=== PATIENT | male | born 1980 | race Caucasian/White ===

== ENCOUNTER 2021-01-04 14:19 | Inpatient (IN) | payer MEDICAID ==
[~2021-01-04] VITALS: Ht 182.9 cm; Wt 160.6 kg
--- NOTE | 2021-01-04 14:19 | NUR ---
PT BIBRA FROM BUS STOP C/O HEADACHE AND BODY ACHE X TODAY. PT IS AAOX4, NOT IN RESPIRATORY DISTRESS, HOOKED HAT CLEANER, KEPT RESTED AND COMFORTABLE. WILL CONTINUE TO MONITOR.
--- NOTE | 2021-01-04 14:36 | NUR ---
PT SEEN AND EXAMINED BY .
--- NOTE | 2021-01-04 14:59 | NUR ---
ER PHLEB AT BEDSIDE FOR BLOOD DRAW.
--- NOTE | 2021-01-04 15:20 | NUR ---
COVID SPECIMEN OBTAINED AND SENT TO LAB.
[2021-01-04 15:52] LABS: CREATININE 0.6 mg/dL (0.6-1.3); POTASSIUM 3.9 mmol/L (3.5-5.1)
[2021-01-04 15:58] LABS: ALBUMIN 3.2 g/dL (3.4-5.0); BILIRUBIN,TOTAL 0.6 mg/dL (0.2-1.0); TOTAL PROTEIN, SERUM 9.1 g/dL (6.4-8.2)
--- NOTE | 2021-01-04 16:00 | NUR ---
PT IS BACK FROM THE CT SCAN.
[2021-01-04 16:07] LABS: BASOPHILS # (AUTO) 0.1 /CMM (0.0-0.2); BASOPHILS % (AUTO) 0.6 % (0.0-2.0); EOSINOPHILS % (AUTO) 1.4 % (0.0-6.0); HEMATOCRIT 44 % (39-51); HEMOGLOBIN 14.5 g/dL (13.5-17.5); LYMPHOCYTES % (AUTO) 10.2 % (20.0-44.0); MEAN CORPUSCULAR HGB CONC 33 g/dl (31.0-36.0); MEAN CORPUSCULAR VOLUME 79 fL (80-96); MONOCYTES # (AUTO) 1.4 /CMM (0.1-1.30); MONOCYTES % (AUTO) 6.9 % (2.0-12.0); NEUTROPHILS % (AUTO) 80.9 % (43.0-81.0); RED BLOOD CELL COUNT(AUTO) 5.58 MIL/uL (4.5-6.0); WHITE BLOOD COUNT (AUTO) 19.8 K/uL (4.3-11.0)
[2021-01-04 16:55] LABS: PLATELET COUNT (AUTO) 242 /CMM (150-450)
[2021-01-04 17:05] LABS: B-TYPE NATRIURETIC PEPTIDE 28 PG/ML (0-125)
--- NOTE | 2021-01-04 17:07 | NUR ---
MOVE SHEET SUBMITTED AND CALLED FOR TELE BED.
--- NOTE | 2021-01-04 17:29 | NUR ---
[facility] FOR IV ANTIBIOTIC.
[2021-01-04] MEDS ORDERED: PIPERACILLIN /TAZOBACTAM 3.375 G in IV D5W 50 ML IV ONE (17:30)
[2021-01-04 17:32] LABS: BILIRUBIN,URINE SMALL (NEGATIVE); COLOR,URINE YELLOW (YELLOW); LEUKOCYTE ESTERASE ,URINE SMALL (NEGATIVE); NITRITE, URINE NEGATIVE (NEGATIVE); PH,URINE 5.5 (5.0-8.0); PROTEIN,URINE 30 mg/dl (NEGATIVE); UGLUCOSE NEGATIVE (NEGATIVE)
[2021-01-04] MEDS ORDERED: AZITHROMYCIN 250 MG TABLET PO ONE (18:00)
[2021-01-04] MEDS ORDERED: CEFTRIAXONE 1 G in IV D5W 50 ML IV ONE (18:00)
--- NOTE | 2021-01-04 18:10 | NUR ---
[facility] CALLED BUSINESS BANKING MANAGER PAGED.
[2021-01-04] MEDS ORDERED: AZITHROMYCIN 250 MG TABLET ONE (18:17)
[2021-01-04] MEDS ORDERED: CEFTRIAXONE 1GM BAG (ER ONLY) 50 ML IV ONE (18:17)
[2021-01-04] MEDS ORDERED: HYDROCODONE/APAP 5/325MG TABLET ONE (18:22)
--- NOTE | 2021-01-04 18:26 | NUR ---
GOT BED 109 BUT AVAILABLE AFTER THE SHIFT CHANGE.
[2021-01-04] MEDS ORDERED: HYDROCODONE/APAP 5/325MG TABLET PO ONE (18:30)
[2021-01-04 18:36] LABS: BACTERIA,URINE RARE /HPF (None Seen); SQUAMOUS EPITHELIAL CELL,UR 0-2 /HPF (None Seen); YEAST,URINE Few /HPF (None Seen)
--- NOTE | 2021-01-04 19:15 | NUR ---
ER TALKING TO DR. CHAIDEZ REGARDING PT ADMISSION.
--- NOTE | 2021-01-04 20:19 | NUR ---
REPORT GIVEN TO BAN ARCOS FOR JOHN PAUL.
[2021-01-04] MEDS ORDERED: ONDANSETRON HCL/PF 4 MG/2 ML VIAL IVP PRN (20:30)
[2021-01-04] MEDS ORDERED: Z GUARD REMEDY 2 OZ OINT TP PRN (20:30)
[2021-01-04] MEDS ORDERED: ACETAMINOPHEN 325 MG TABLET PO PRN (20:30)
[2021-01-04] MEDS ORDERED: MAGNESIUM HYDROXIDE 30 ML UDC PO PRN (20:30)
[2021-01-04] MEDS ORDERED: ZOLPIDEM TARTRATE 5 MG TABLET PO PRN (20:30)
[2021-01-04] MEDS ORDERED: MAG HYDROX/AL HYDROX/SIMETH 30 ML UDC PO PRN (20:30)
--- NOTE | 2021-01-04 20:35 | NUR ---
PATIENT TAKEN UP TO ASSIGNED ROOM.
--- NOTE | 2021-01-04 20:45 | NUR ---
RECEIVED PT FROM ER VIA [facility] A/O X4 ON O2 VIA NC 2L SPO2 97 % NO SIGNS OF DISTRESS NOTED, SAFELY TRANSFER FROM [facility] TO BED V/S CHECKED AND RECORDED, PT ABLE TO VERBALIZED NEEDS, HOOKED TO TELE MONITOR WITH READING SINUS RHYTHM 80'S, HEAD TO TOE ASSESSMENT DONE SEVERAL REDNESS ON THE BODY NOTED, PICTURE OBTAIN, PT HAVE SUPRA PUBIC CATHETER WITH LAMBERT URINE DRAINING VIA GRAVITY NO SIGN OF INFECTION ON SUPRAPUBIC SITE, INITIAL ASSESSMENT DONE, DROPLET ISOLATION INITIATED FOR R/O COVID PCR PENDING, RAPID NEG, PT ABLE TO DRINK JUICE MAY GIVE FOOD REQUESTED, BED ON LOWEST POSITION AND LOCKED SIDE RAILS UP X2 CALL LIGHT WITHIN REACH WILL CONT TO MONITOR
[2021-01-04 21:00] VITALS: BP 113/52
[2021-01-04] MEDS: ENOXAPARIN SODIUM 40 MG/0.4 ML DISP.SYRIN SQ SCH (21:00)
[2021-01-05] VITALS (7 sets, daily range): BP systolic 103–131; BP diastolic 58–69
[2021-01-05] MEDS ORDERED: METH10TA2 PO (00:04)
[2021-01-05] MEDS ORDERED: ALBU2.5V38 NEB (00:04)
[2021-01-05] MEDS ORDERED: HALO2TAB IM (00:04)
[2021-01-05] MEDS ORDERED: SULF1TAB47 PO (00:04)
[2021-01-05] MEDS ORDERED: ONDA4TAB5 IVP (00:04)
[2021-01-05] MEDS ORDERED: LURA80TA PO (00:04)
[2021-01-05] MEDS ORDERED: OLAN5TAB3 PO (00:04)
[2021-01-05] MEDS ORDERED: CALC355O18 PO (00:04)
[2021-01-05] MEDS ORDERED: LEVO750T46 PO ×2 (00:04)
[2021-01-05] MEDS ORDERED: CLON2TAB PO (00:04)
[2021-01-05] MEDS ORDERED: OXYC5CAP18 PO (00:04)
[2021-01-05] MEDS ORDERED: HEPA100D33 IV/SQ (00:04)
[2021-01-05] MEDS ORDERED: MAGN24002 PO (00:04)
[2021-01-05] MEDS: HYDROCODONE/APAP 5/325MG TABLET PO PRN ×2 (00:22→08:15)
[2021-01-05] MEDS ORDERED: clonazePAM 2 MG TABLET PO PRN (01:00)
[2021-01-05] MEDS ORDERED: OLANZAPINE 5 MG TABLET PO PRN (01:00)
[2021-01-05] MEDS ORDERED: Medication Not On Formulary EA (Calcium Carb/Mag Hydrox/Simeth (Mylanta Tonight 800-270- PO SCH (01:00)
[2021-01-05] MEDS ORDERED: ALBUTEROL FS 2.5 MG/3 ML VIAL.NEB NEB PRN (01:00)
[2021-01-05] MEDS ORDERED: KETOROLAC TROMETHAMINE INJ 30 MG/ML VIAL IM PRN (01:30)
[2021-01-05] MEDS ORDERED: clonazePAM 1 MG TABLET ONE (03:49)
[2021-01-05 06:26] LABS: BASOPHILS # (AUTO) 0.1 /CMM (0.0-0.2); BASOPHILS % (AUTO) 1.1 % (0.0-2.0); HEMATOCRIT 39 % (39-51); HEMOGLOBIN 12.8 g/dL (13.5-17.5); LYMPHOCYTES # (AUTO) 2.4 /CMM (0.8-4.8); LYMPHOCYTES % (AUTO) 23.4 % (20.0-44.0); MEAN CORPUSCULAR HGB CONC 33 g/dl (31.0-36.0); MEAN CORPUSCULAR VOLUME 80 fL (80-96); MONOCYTES # (AUTO) 0.9 /CMM (0.1-1.30); MONOCYTES % (AUTO) 8.9 % (2.0-12.0); NEUTROPHILS # (AUTO) 6.3 /CMM (1.8-8.9); NEUTROPHILS % (AUTO) 61.6 % (43.0-81.0); PLATELET COUNT (AUTO) 200 /CMM (150-450); RED BLOOD CELL COUNT(AUTO) 4.91 MIL/uL (4.5-6.0); WHITE BLOOD COUNT (AUTO) 10.2 K/uL (4.3-11.0)
--- NOTE | 2021-01-05 06:48 | NUR ---
PT ON BED AWAKE NO SIGN OF RESPIRATORY DISTRESS, NO COMPLAINED OF PAIN, TELE MONITOR READS SINUS RHYTHM 80S NO SIGNIFICANT CHANGES ON CONDITION NOTED ALL NEED ATTENDED BED ON LOWEST POSITION AND LOCKED SIDE RAILS UP X 2 CALL LIGHT WITHIN REACH WILL ENDORSED TO AM SHIFT NURSE
[2021-01-05 07:00] LABS: CALCIUM, SERUM 8.5 mg/dL (8.5-10.1); CREATININE 0.5 mg/dL (0.6-1.3); MAGNESIUM 2.2 mg/dL (1.8-2.4); PHOSPHORUS 4.1 mg/dL (2.5-4.9); POTASSIUM 3.4 mmol/L (3.5-5.1)
[2021-01-05 07:22] LABS: THYROID STIMULATING HORMONE 1.06 uIU/mL (0.358-3.74)
--- NOTE | 2021-01-05 07:32 | NUR ---
MS/RN OPENING NOTE PATIENT IN BED ASLEEP EASILY WAKEN UP. PATIENT IS A/O X4. NO ACUTE DISTRESS NOTED AT THIS TIME. PATIENT ON ROOM AIR TOLERATING WELL. NO SOB NOTED, BREATHING EVEN, NON LABORED. SAFETY MEASURES IN PLACE, BED LOCKED AND IN LOWEST POSITION, CALL LIGHT WITHIN REACH. WILL CONTINUE TO MONITOR AND ENSURE SAFETY.
[2021-01-05] MEDS: PANTOPRAZOLE 40 MG TABLET.DR PO SCH (07:50)
[2021-01-05] MEDS: MAGNESIUM HYDROXIDE 30 ML UDC PO SCH ×2 (08:14→16:10)
[2021-01-05] MEDS ORDERED: POTASSIUM CHLORIDE 20 MEQ TAB.PRT.SR PO ONE (10:30)
[2021-01-05] MEDS: METHADONE HCL 10 MG TABLET PO SCH ×2 (11:06→20:20)
[2021-01-05] MEDS: clonazePAM 1 MG TABLET PO PRN (16:11)
[2021-01-05] MEDS ORDERED: METHYL SALICYLATE/MENTHOL 28GM 28 GM TUBE TP PRN (17:30)
[2021-01-05] MEDS: CEFTRIAXONE 1 G in IV D5W 50 ML IV SCH (17:54)
[2021-01-05] MEDS ORDERED: AZITHROMYCIN 500 MG in IV D5W 250 ML IV SCH (18:30)
--- NOTE | 2021-01-05 18:59 | NUR ---
MS/RN CLOSING NOTE PATIENT IN BED AWAKE. PATIENT IS A/O X4. NO ACUTE DISTRESS NOTED AT THIS TIME. PATIENT ON ROOM AIR TOLERATING WELL. NO SOB NOTED, BREATHING EVEN, NON LABORED. SAFETY MEASURES IN PLACE, BED LOCKED AND IN LOWEST POSITION, CALL LIGHT WITHIN REACH. ALL NEEDS MET THROUGHOUT THE SHIFT. WILL ENDORSE TO PATCH WORKER NURSE.
--- NOTE | 2021-01-05 20:00 | NUR ---
RN NOTE RECEIVED PT IN BED A/O X4, ON RA SATING 96%, PT HAS UNLABORED BREATHING, ON TELE MONITOR SHOWING SR IN 70s.SAFETY MEASURES IN PLACE.
[2021-01-05] MEDS: ENOXAPARIN SODIUM 40 MG/0.4 ML DISP.SYRIN SQ SCH (20:11)
[2021-01-05] MEDS: DOXYCYCLINE HYCLATE (100 MG) 100 MG TABLET PO SCH (20:20)
[2021-01-05] MEDS: oxyCODONE IR immediate release 5 MG PO PRN (23:11)
[2021-01-06] VITALS: BP 133/86
[2021-01-06 04:00] VITALS: BP 131/60
[2021-01-06] MEDS: clonazePAM 1 MG TABLET PO PRN ×2 (04:27→16:20)
[2021-01-06 06:48] LABS: BASOPHILS # (AUTO) 0.1 /CMM (0.0-0.2); EOSINOPHILS % (AUTO) 4.9 % (0.0-6.0); HEMATOCRIT 37 % (39-51); HEMOGLOBIN 12.2 g/dL (13.5-17.5); LYMPHOCYTES # (AUTO) 2.3 /CMM (0.8-4.8); LYMPHOCYTES % (AUTO) 23.4 % (20.0-44.0); MEAN CORPUSCULAR HGB CONC 33 g/dl (31.0-36.0); MEAN CORPUSCULAR VOLUME 80 fL (80-96); MONOCYTES # (AUTO) 0.9 /CMM (0.1-1.30); MONOCYTES % (AUTO) 9.3 % (2.0-12.0); NEUTROPHILS # (AUTO) 5.9 /CMM (1.8-8.9); NEUTROPHILS % (AUTO) 61.4 % (43.0-81.0); PLATELET COUNT (AUTO) 161 /CMM (150-450); RED BLOOD CELL COUNT(AUTO) 4.63 MIL/uL (4.5-6.0); WHITE BLOOD COUNT (AUTO) 9.6 K/uL (4.3-11.0)
[2021-01-06 07:21] LABS: CALCIUM, SERUM 8.8 mg/dL (8.5-10.1); CREATININE 0.5 mg/dL (0.6-1.3); PHOSPHORUS 3.8 mg/dL (2.5-4.9); POTASSIUM 3.9 mmol/L (3.5-5.1)
--- NOTE | 2021-01-06 07:27 | NUR ---
RN PT REMAINED STABLE NO ACUTE CHANGES DURING MY SHIFT REPORT GIVEN TO INCOMING SHIFT FOR JOHN PAUL.
--- NOTE | 2021-01-06 07:30 | NUR ---
RN OPENING NOTE PATIENT IS IN BED WITH HOB AT SEMI FOWLERS POSITION. PATIENT IS CURRENTLY AOX4. PATIENT HAS NONLABORED BREATHING ON ROOM AIR. SUPRAPUBIC BARNETT IS IN PLACE. SACRAL DTI, BILATERAL GROIN REDNESS, BILATERAL AXILLARY REDNESS HAVE BEEN NOTED. HIRA MIDLINE IS PATENT, INTACT, AND HAS NO SIGNS OF INFILTRATION. BED IS LOCKED IN THE LOWEST POSITION, CALL FINN WITHIN REACH, 3 GUARD RAILS RAISED, AND ALL HOSPITAL SAFETY PRECAUTIONS ARE IN PLACE. WILL CONTINUE TO MONITOR THROUGHOUT SHIFT.
[2021-01-06] MEDS: PANTOPRAZOLE 40 MG TABLET.DR PO SCH (07:42)
[2021-01-06 08:00] VITALS: BP 98/36
[2021-01-06] MEDS: MAGNESIUM HYDROXIDE 30 ML UDC PO SCH ×2 (08:20→16:20)
[2021-01-06] MEDS: DOXYCYCLINE HYCLATE (100 MG) 100 MG TABLET PO SCH ×2 (08:20→20:46)
[2021-01-06] MEDS: METHADONE HCL 10 MG TABLET PO SCH ×2 (08:20→20:46)
[2021-01-06] MEDS: oxyCODONE IR immediate release 5 MG PO PRN ×3 (08:26→22:22)
--- NOTE | 2021-01-06 11:05 | NUR ---
WOUND CARE CONSULT: REVIEWED CHART, NURSING DOCUMENTATION AND PHOTOS WHICH INDICATE MULTIPLE AREAS OF SCARRING WITH RASHES AND INCONTINENCE ASSOCIATED SKIN DAMAGE OVER SACRAL/BUTTOCKS SCARRING, PRESENT ON ADMISSION. RECOMMENDATIONS MADE FOR SKIN PROTECTION. DISCUSSED WITH NURSING STAFF. BARIATRIC BED ORDERED ([facility] AIR BED). MD IN AGREEMENT WITH PLAN OF CARE.
[2021-01-06 12:00] VITALS: BP 115/64
[2021-01-06 16:00] VITALS: BP 117/44
[2021-01-06] MEDS: CEFTRIAXONE 1 G in IV D5W 50 ML IV SCH (17:11)
--- NOTE | 2021-01-06 18:26 | NUR ---
RN CLOSING NOTE PATIENT IS CLEAN AND IN BED WITH HOB AT SEMI FOWLERS POSITION. PATIENT IS AOX4. CURRENTLY ON ROOM AIR WITH NO SIGNS OF LABORED BREATHING. SUPRA PUBIC BARNETT CATHETER IS IN PLACE. HIRA MIDLINE IS PATENT, INTACT, AND HAS NO SIGNS OF INFILTRATION. BILATERAL GROIN REDNESS, BILATERAL AXILLARY REDNESS, AND SACRAL DTI ARE NOTED. BED IS LOCKED IN THE LOWEST POSITION, CALL FINN WITHIN REACH, 3 GUARD RAILS RAISED, AND ALL HOSPITAL SAFETY PRECAUTIONS ARE BEING FOLLOWED. WILL ENDORSE TO AUTO JOB ESTIMATOR RN.
[2021-01-06 20:00] VITALS: BP 95/57
--- NOTE | 2021-01-06 20:23 | NUR ---
RN NOTE PATIENT A/OX4, ABLE TO MAKE NEEDS KNOWN. NO SOB, RESPIRATIONS EVEN AND UNLABORED. ON ROOM AIR, O2 SAT 95%. TELE MONITOR ON, SR. NOTED WITH SUPRA PUBIC BARNETT, PATENT AND INTACT. WITH HIRA MIDLINE, PATENT AND INTACT. FLUSHED WITH NS. CALL LIGHT WITHIN REACH. SAFETY MEASURES IMPLEMENTED. WILL CONTINUE TO MONITOR.
[2021-01-06] MEDS: ENOXAPARIN SODIUM 40 MG/0.4 ML DISP.SYRIN SQ SCH (20:48)
[2021-01-06] MEDS: FLUCONAZOLE (100 MG) 100 MG TABLET PO SCH (20:52)
[2021-01-07] VITALS (7 sets, daily range): BP systolic 108–136; BP diastolic 50–82
[2021-01-07] MEDS: oxyCODONE IR immediate release 5 MG PO PRN ×3 (01:50→21:27)
[2021-01-07] MEDS: clonazePAM 1 MG TABLET PO PRN ×2 (04:03→16:25)
--- NOTE | 2021-01-07 06:44 | NUR ---
RN NOTE PATIENT A/OX4, ABLE TO MAKE NEEDS KNOWN. NO SOB OR ANY DISTRESS. ALL DUE MEDS GIVEN ORDERED. NO SIGNIFICANT CHANGES. NEEDS ATTENDED PROMPTLY. WILL ENDORSE TO ONCOMING SHIFT.
--- NOTE | 2021-01-07 07:41 | NUR ---
MS/RN OPENING NOTE RECEIVED PATIENT FROM MEDICAL PSYCHOTHERAPIST NURSE. PATIENT IS IN BED ASLEEP, EASILY WOKEN UP. A/O X4. NO ACUTE DISTRESS NOTED AT THIS TIME. PATIENT ON ROOM AIR, TOLERATING WELL. NO SOB NOTED, BREATHING EVEN NON LABORED. SAFETY MEASURES IN PLACE, BED LOCKED AND IN LOWEST POSITION, CALL LIGHT WITHIN REACH. WILL CONTINUE TO MONITOR AND ENSURE SAFETY.
[2021-01-07] MEDS: MAGNESIUM HYDROXIDE 30 ML UDC PO SCH ×2 (09:42→16:23)
[2021-01-07] MEDS: DOXYCYCLINE HYCLATE (100 MG) 100 MG TABLET PO SCH ×2 (09:42→20:01)
[2021-01-07] MEDS: PANTOPRAZOLE 40 MG TABLET.DR PO SCH (09:42)
[2021-01-07] MEDS: FLUCONAZOLE (100 MG) 100 MG TABLET PO SCH (09:42)
[2021-01-07] MEDS: METHADONE HCL 10 MG TABLET PO SCH ×2 (09:42→20:01)
--- NOTE | 2021-01-07 19:13 | NUR ---
MS/RN CLOSING NOTE PATIENT IS IN BED AWAKE. A/O X4. NO ACUTE DISTRESS NOTED AT THIS TIME. PATIENT ON ROOM AIR, TOLERATING WELL. NO SOB NOTED, BREATHING EVEN NON LABORED. SAFETY MEASURES IN PLACE, BED LOCKED AND IN LOWEST POSITION, CALL LIGHT WITHIN REACH. ALL NEEDS MET THROUGHOUT THE SHIFT. WILL ENDORSE TO CARPENTRY TEACHER NURSE.
--- NOTE | 2021-01-07 19:20 | NUR ---
RECEIVED PATIENT IN BED WITH HOB AT SEMI FOWLERS POSITION. PATIENT IS CURRENTLY AOX4. PATIENT HAS NONLABORED BREATHING ON ROOM AIR.SPO2 98% SUPRAPUBIC BARNETT IS IN PLACE WITH YELLOW URINE DRAINING VIA GRAVITY. HIRA MIDLINE IS PATENT, INTACT, AND HAS NO SIGNS OF INFILTRATION. BED IS LOCKED IN THE LOWEST POSITION, CALL FINN WITHIN REACH, SIDE RAILS RAISED, AND ALL HOSPITAL SAFETY PRECAUTIONS ARE IN PLACE. WILL CONTINUE TO MONITOR THROUGHOUT SHIFT.
[2021-01-07] MEDS: ENOXAPARIN SODIUM 40 MG/0.4 ML DISP.SYRIN SQ SCH (20:02)
--- NOTE | 2021-01-07 22:10 | NUR ---
TRANSFER PT TO ROOM 327 D/T NEGATIVE COVID TEST VIA HIS BED NO SIGN OF DISTRESS NOTED PT IS ALERT ORIENTED PRN MEDS GIVEN BEFORE THE TRANSFER REPORT GIVEN TO LOLIS ARCOS FOR JOHN PAUL ALL BELONGINGS ALSO BRING TO ROOM 327
--- NOTE | 2021-01-07 22:10 | NUR ---
MS RN OPENING NOTE - JOHN PAUL PATIENT WAS A TRANSFER FROM [place]. NOW IN ROOM 327-1. RECEIVED IN BARIATRIC BED. A/OX4. TOLERATING ROOM AIR. RESPIRATIONS ARE EVEN AND UNLABORED. NO S/S SOB NOTED. NO C/O PAIN AT THIS TIME. IN NO APPARENT DISTRESS. BELONGINGS BROUGHT AND MEDICATIONS TAKEN TO MED ROOM. CHART ALSO PRESENT, REVIEWED BELONGINGS LIST. CHECKER AND PACKER OBTAINED VITAL SIGNS. IV ACCESS IN HIRA MIDLINE PATENT AND SALINE LOCKED. SUPRAPUBIC CATHETER IS PRESENT, DRAINING TO GRAVITY. BED IS LOW AND LOCKED, ALL SIDE RIALS UP . PATIENT IS ABLE TO PUSH BUTTONS HIMSELF. MADE COMFORTABLE. CALL LIGHT WITHIN REACH. WILL CONTINUE TO MONITOR. THROUGHOUT SHIFT.
[2021-01-08] MEDS: clonazePAM 1 MG TABLET PO PRN ×2 (04:31→16:52)
[2021-01-08] MEDS: PANTOPRAZOLE 40 MG TABLET.DR PO SCH (06:25)
--- NOTE | 2021-01-08 07:20 | NUR ---
MS RN NOTES PATIENT IN BED ALERT ORIENTED X 4. . NO ACUTE DISTRESS NOTED. BREATHING UNLABORED. IV ACCESS PATENT AND INTACT, NO REDNESS, NO SWELLING NOTED. SUPRA PUBIC CATHETER INTACT. .SAFETY MEASURES IN PLACE. CALL LIGHT WITHIN REACH. WILL CONTINUE TO MONITOR ACCORDINGLY.
--- NOTE | 2021-01-08 07:25 | NUR ---
MS RN CLOSING NOTE RESTING IN BED. A/OX4. TOLERATING ROOM AIR. NO RESP DISTRESS. NO C/O PAIN THROUGHOUT SHIFT. NO DISTRESS. IV ACCESS IN HIRA MIDLINE. SUPRAPUBIC CATHETER DRAINING TO GRAVITY. BED REMAINS LOW AND LOCKED, ALL SIDE RIALS UP . PATIENT IS ABLE TO PUSH BUTTONS HIMSELF TO DO REPOSITIONING. BED IS LOW AND LOCKED, HOB ELEVATED IN SEMI FOWLERS, CALL LIGHT WITHIN REACH. WILL ENDORSE TO NEXT SHIFT.
[2021-01-08 08:00] VITALS: BP 115/66
[2021-01-08] MEDS: MAGNESIUM HYDROXIDE 30 ML UDC PO SCH ×3 (09:00→16:52)
[2021-01-08] MEDS: METHADONE HCL 10 MG TABLET PO SCH ×2 (09:26→22:04)
[2021-01-08] MEDS ORDERED: OXYC-133 PO (09:26)
[2021-01-08] MEDS ORDERED: DOXY-226 PO (09:26)
[2021-01-08] MEDS: DOXYCYCLINE HYCLATE (100 MG) 100 MG TABLET PO SCH ×2 (09:26→22:04)
[2021-01-08] MEDS ORDERED: CLON1TAB PO (09:26)
[2021-01-08] MEDS: FLUCONAZOLE (100 MG) 100 MG TABLET PO SCH (09:27)
[2021-01-08] MEDS: oxyCODONE IR immediate release 5 MG PO PRN (15:03)
[2021-01-08 16:00] VITALS: BP 125/78
--- NOTE | 2021-01-08 16:53 | NUR ---
MS RN NOTES PATIENT REFUSED MILK OF MAGNESIA DESPITE OF EXPLANATION OF RISKS AND BENEFITS, VERBALIZED UNDERSTANDING
--- NOTE | 2021-01-08 19:00 | NUR ---
MS RN NOTES PATIENT IN BED ALERT ORIENTED X 4. NO ACUTE DISTRESS NOTED. BREATHING UNLABORED. IV ACCESS PATENT AND INTACT, NO REDNESS, NO SWELLING NOTED. SUPRA PUBIC CATHETER INACT. NEEDS ATTENDED AND ANTICIPATED .SAFETY MEASURES IN PLACE. PATENT REFUSED PHOTO TAKEN, RISKS AND BENEFITS EXPLAINED, VERBALIZED UNDERSTANDING. NEEDS ATTENDED AND ANTICIPATED CALL LIGHT WITHIN REACH. WILL ENDORSE TO NIGHT NURSE FOR CONTINUITY OF CARE.
--- NOTE | 2021-01-08 19:23 | NUR ---
MS RN: CONTINUITY OF CARE Patient in bed, awake, A/O x4. Stable Oxygen saturation on room air, denies pain. Patient to be dc today, refused skin check per JOSSELYN Claudio. Awaiting ambulance for transport.
[2021-01-08 20:00] VITALS: BP 123/68
[2021-01-08] MEDS: ENOXAPARIN SODIUM 40 MG/0.4 ML DISP.SYRIN SQ SCH (22:07)
--- NOTE | 2021-01-08 22:08 | NUR ---
MS RN: ANTICOAGULANT H/H 12. Platelet 161 no bleeding. Lovenox injection given co-signed by JOSSELYN Cannon. Transport arrived but will come for another gurney base on patient weight.
--- NOTE | 2021-01-08 23:00 | NUR ---
MS RN: DISCHARGED Discharge instruction given to patient, verbalized understanding. HIRA midline removed. Supra pubic catheter remained in place, obtained 900 ml urine. All personal belongings send with the patient. Refused skin checked, skin precaution/education provided. Patient left hosp in stable condition via gurney transport by ambulance.
== END 2021-01-08 22:55 | disposition home or self-care (01) | DRG 720 ==
LOC: ER 14:19 → TRANSITION 19:13 → MEDSG1 20:06 → TELE1 20:28 → MEDSG1 01-07 11:03 → MED 01-07 23:06
PROVIDERS: ADMIT Student in an Organized Health Care Education/Training Program; ATTEND Nurse Practitioner Acute Care
PROC: 05HD33Z Insertion of Infusion Device into Right Cephalic Vein, Percutaneous Approach (ICD-10-PCS; principal; 2021-01-04)
DX: A41.9 Sepsis, unspecified organism (principal); E87.1 Hypo-osmolality and hyponatremia; Z20.822 Contact with and (suspected) exposure to COVID-19; Z93.59 Other cystostomy status; N31.9 Neuromuscular dysfunction of bladder, unspecified; G82.20 Paraplegia, unspecified; J18.9 Pneumonia, unspecified organism; E88.09 Other disorders of plasma-protein metabolism, not elsewhere classified; Z68.42 Body mass index [BMI] 45.0-49.9, adult; D68.59 Other primary thrombophilia; E44.0 Moderate protein-calorie malnutrition; E86.1 Hypovolemia; K59.00 Constipation, unspecified; K80.20 Calculus of gallbladder without cholecystitis without obstruction; E66.01 Morbid (severe) obesity due to excess calories; W34.00XS Accidental discharge from unspecified firearms or gun, sequela; Z88.1 Allergy status to other antibiotic agents; Z87.891 Personal history of nicotine dependence; Z99.3 Dependence on wheelchair; F19.90 Other psychoactive substance use, unspecified, uncomplicated; K76.0 Fatty (change of) liver, not elsewhere classified; S72.001S Fracture of unspecified part of neck of right femur, sequela; X58.XXXS Exposure to other specified factors, sequela; B96.89 Other specified bacterial agents as the cause of diseases classified elsewhere; Z74.09 Other reduced mobility; L30.4 Erythema intertrigo; B37.49 Other urogenital candidiasis; I89.0 Lymphedema, not elsewhere classified
CPT/HCPCS: 36415; 70450-TC; 71045-TC; 80048-TC; 80053-TC; 80061-TC; 81001; 83605-TC; 83735-TC; 83880; 84100-TC; 84443-TC; 84484-TC; 85025-TC; 87040-TC; 87081-TC; 87086-TC; 93307-TC; 93970-TC; C1751; C9803; G0378; J0456; J0696; J1650; J2543; J7050; J7060; U0003